=== PATIENT | male | born 1950 | race Caucasian/White ===

== ENCOUNTER 2024-06-17 09:32 | Emergency (ER) | payer BC, SELFPAY ==
[2024-06-17 09:44] VITALS: BP 172/95
--- NOTE | 2024-06-17 10:34 | ED.GENMED ---
History of Present Illness
General
Chief Complaint: Abdominal Pain
Source: patient and spouse
Exam Limitations: none
Time Seen by Provider: 06/17/24 10:18
Nursing documentation reviewed up to this point in time: agreed with
History of Present Illness
History of Present Illness:
73-year-old male with history of urinary frequency on tamsulosin, started trazodone 2 weeks ago for sleep, bradycardia, HLD presents for 'severe' abdominal pain. 'It feels like my bladder and intestines are bound up together.'
He states he had 4 small bowel movements this morning. He cannot lay down due to the abdominal pain. He is more comfortable sitting on the toilet.
He denies fever or chills. Denies chest pain or trouble breathing.
Past History
Past History
ED Past Medical History: Other (Chest pain, urinary frequency on tamsulosin)
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
Social History
Tobacco: Non-smoker
Alcohol: None
Drug: None
Personal:
Living: with family
Review of Systems
Review of Systems
Allergies reviewed?: Yes
All Other Systems: ROS reviewed and negative except as documented in HPI and ROS
Constitutional: Denies fever or chills
Respiratory: Denies trouble breathing
Cardiac: Denies chest pain
ABD/GI: Reports abdominal pain and constipated; Denies nausea or vomiting
: Reports frequency and difficulty voiding; Denies flank pain
Musculoskeletal: Reports no symptoms
Skin: Reports no symptoms
Neurological: Reports no symptoms
Phy Exam
Physical Exam
Physical Exam:
GENERAL: No acute distress. A&Ox3.
CONSTITUTIONAL: Afebrile.
EYES: clear, conjunctivae normal
ENMT: moist mucus membranes
RESPIRATORY: Regular respirations, nonlabored, lungs clear.
CARDIOVASCULAR: Regular rate and rhythm, no murmurs, no rubs.
GI: Soft,rotund, tender LLQ mainly, normal BS
MUSCULOSKELETAL: Moves with ease. Well perfused.
SKIN: Warm, dry, pink
PSYCH: Normal mood and affect. Well kept, interactive and appropriate
NEUROLOGIC: Awake, alert and oriented. No focal neurological deficits
Course
Orders/Labs/Results
Orders:
Orders
06/17/24 10:33
Bladder Scan- Treatment ONCE
06/17/24 10:47
Complete Blood Count/With Diff Urgent
Comprehensive Metabolic Panel Urgent
Lipase Urgent
06/17/24 10:56
Urinalysis Reflex To Culture Urgent
Date Specimen was Collected: 06/17/24
Time Specimen was Collected: 10:48
Urine Microscopic Reflex Cult Urgent
06/17/24 10:59
CT Abd/Pel (IV only)-DH only Urgent
Comment:
Reason For Exam: lower abdominal pain
Abnormal Lab Results
06/17/24 06/17/24
10:47 10:56
MCV 96.0 H fL
(80.0-94.0)
MCH 32.1 H pg
(27.0-31.0)
Absolute Monos (auto) 0.7 H 10^3/uL
(0.1-0.6)
Glucose 104 H mg/dl
(70-99)
Ur Occult Blood Reflex 4+ A
(Negative)
Urine RBC 30-40 A /HPF
(0-2)
Urine Bacteria (Reflex) Few A
(Negative)
Urine Albumin (Reflex) 1+ A
(Neg - Trace)
06/17/24 10:47
06/17/24 10:47
Vital Signs
Initial and Last Documented VS:
Initial Vital Signs
Temp Pulse Resp BP Pulse Ox
97.7 F 58 18 172/95 96
06/17/24 09:44 04/15/25 09:44 06/17/24 09:44 06/17/24 09:44 06/17/24 09:44
Last Documented Vital Signs
Temp Pulse Resp BP Pulse Ox
97.7 F 54 18 142/80 96
06/17/24 09:44 06/17/24 14:09 06/17/24 09:44 06/17/24 14:09 06/17/24 09:44
MDM/Problems Addressed
Differential Diagnosis Includes:
Acute urine retention, UTI, kidney stone
MDM/Problems Addressed:
73-year-old male with history of urinary frequency on tamsulosin, started trazodone 2 weeks ago for sleep, bradycardia, HLD presents for 'severe' abdominal pain. 'It feels like my bladder and intestines are bound up together.'
He states he had 4 small bowel movements this morning. He cannot lay down due to the abdominal pain. He is more comfortable sitting on the toilet.
He denies fever or chills. Denies chest pain or trouble breathing.
Afebrile, appears uncomfortable pacing due to abdominal pain and inability to urinate
11:00 a.m.
Bladder scan: 15 ml
Pt states pain is 3/10, declines when pain med offered.
CBC with no clinically significant abnormality
CMP normal
Lipase normal
UA: 4+ occult blood, 30-40 RBCs, 6-10 WBCs, few bacteria
1:30 PM:
Patient has been comfortable since initial evaluation
CAT scan abdomen pelvis radiology report read: IMPRESSION:
3 mm left UVJ stone causing mild left hydronephrosis and moderate left perinephric stranding.
Results discussed with pt and . Copy of CT report given to them.
Pt remains pain free. Ambulated out with normal gait at discharge
*Critical Care Note
Total Time (30-74mins, 75-104mins- exclusive of procedures): Not Applicable
ED Attending Note
-
Portions of this chart may have been created with voice recognition software.� Occasional wrong word or��sound alike� substitutions may have occurred due to the inherent limitations of voice recognition software.
Discharge Plan
Departure
Patient Disposition: Home (Routine Discharge)
Date of Disposition: 06/17/24
Time of Disposition: 14:15
Patient with high blood pressure during this ER visit?: No
Condition: Good
Discharge Problem:
Left ureteral calculus
Instructions: Kidney Stones (DC)
Referrals:
Jagdeep Acharya MD [Active] - Next open appointment
Saeid Graham MD [Family Provider] -
Activity Restrictions/Additional Instructions:
As we discussed, your 3 mm stone that you most likely have passed.
Strain your urine and if you see the stone put in a container provided
Call the urology office to make next available appointment.
Ibuprofen 600 mg, with food, every 6 hours as needed for pain.
Interventions
Interventions:
*Risk Screen - Suicide Last Done: 06/17/24 09:44
*General Assessment Last Done: 06/17/24 09:44
*Neglect/Abuse Screening Last Done: 06/17/24 10:38
*ED- Fall Risk Assessment Last Done: 06/17/24 10:38
*ED COVID-19 Vaccine History Last Done: 06/17/24 10:38
*Nursing Disposition Last Done: 06/17/24 14:31
QN-Wzauow-Fqxfvkrxez Assessment Last Done: 06/17/24 10:38
Discharge Date and Time
Discharge Date/Time: 06/17/24 14:34
Print Language: POLISH
[2024-06-17 11:11] LABS: Urine Albumin 1+ (Neg - Trace); Urine Bilirubin Negative (Negative); Urine Character Slightly Cloudy (Clear); Urine Color Yellow; Urine Glucose Negative (Negative); Urine Ketone Negative (Negative); Urine Leukocyte Negative (Negative); Urine Nitrite Negative (Negative); Urine Occult Blood 4+ (Negative); Urine Specific Gravity 1.025 (<1.030); Urine Urobilinogen Negative (Neg - 1+)
[2024-06-17 11:21] LABS: Urine Bacteria Few (Negative); Urine Squamous Cell 0-2 /LPF (Few)
[2024-06-17 11:22] LABS: Urine Red Blood Cell 30-40 /HPF (0-2)
[2024-06-17 11:26] LABS: % Basophils 0.7 % (0-2); % Eosinophils 3.5 % (0-6); % Immature Granulocytes 0.4 % (0-0.5); % Lymphocytes 22.6 % (20.5-51.1); % Monocytes 8.7 % (1.7-9.3); % Neutrophils 64.1 % (42.2-75.2); Absolute Basophils 0.1 10^3/uL (0-0.2); Absolute Eosinophils 0.3 10^3/uL (0-0.7); Absolute Lymphocytes 1.7 10^3/uL (1.2-3.4); Absolute Monocytes 0.7 10^3/uL (0.1-0.6); Absolute Neutrophils 4.8 10^3/uL (1.4-6.5); Hematocrit 45.8 % (39.0-52.0); Hemoglobin 15.3 g/dL (13.0-18.0); Mean Corp Hgb Conc. 33.4 g/dL (33.0-37.0); Mean Corpuscular Hgb 32.1 pg (27.0-31.0); Mean Platelet Volume 10.4 fL (7.4-10.4); Nucleated Red Blood Cells % 0 % (-); Platelet Count 211 10^3/uL (130-400); Red Blood Cell Count 4.77 10^6/uL (4.70-6.10); Red Cell Dist. Width 12.6 % (11.5-14.5); White Blood Cell Count 7.4 10^3/uL (4.8-10.8)
[2024-06-17 11:40] LABS: ALT (SGPT) 22 U/L (0-50); AST (SGOT) 28 U/L (17-59); Albumin 4.4 g/dl (3.5-5.0); Alkaline Phosphatase 72 U/L (38-126); Blood Urea Nitrogen 17 mg/dl (9-20); Calcium 9.1 mg/dl (8.4-10.2); Carbon Dioxide 26 mmol/L (22-30); Chloride 107 mmol/L (98-107); Glucose 104 mg/dl (70-99); Lipase 42 U/L (23-300); Potassium 4.6 mmol/L (3.5-5.1); Sodium 141 mmol/L (135-145); Total Bilirubin 0.7 mg/dl (0.2-1.3); Total Protein 7.3 g/dl (6.3-8.2); eGFR > 60.00
[2024-06-17 14:09] VITALS: BP 142/80
== END 2024-06-17 14:34 | disposition home or self-care (01) ==
LOC: EMR 09:32
PROVIDERS: Registered Nurse; EMERGENCY PHYSICIAN Student in an Organized Health Care Education/Training Program; FAMILY PHYSICIAN Internal Medicine
DX: N13.2 Hydronephrosis with renal and ureteral calculous obstruction (principal); R35.0 Frequency of micturition; E78.5 Hyperlipidemia, unspecified; Z79.899 Other long term (current) drug therapy; Z88.3 Allergy status to other anti-infective agents; Z88.0 Allergy status to penicillin
CPT/HCPCS: 99284; 51798; 74177; 80053; 81003; 81015; 83690; 85025; Q9967

== ENCOUNTER → 2024-09-02 15:14 | Outpatient (REF) | payer BC, SELFPAY | LOC: RAD 15:14 | PROVIDERS: ATTENDING PHYSICIAN Internal Medicine | DX: J45.20 Mild intermittent asthma, uncomplicated (principal) | CPT/HCPCS: 71046 ==

== ENCOUNTER → 2024-10-31 15:46 | Outpatient (REF) | payer BC, SELFPAY | LOC: HWRCS 15:46 | PROVIDERS: ATTENDING PHYSICIAN Internal Medicine; FAMILY PHYSICIAN Internal Medicine | DX: I51.7 Cardiomegaly (principal) | CPT/HCPCS: 93306 ==